=== PATIENT | male | born 1945 | race Caucasian/White ===

== ENCOUNTER 2019-09-28 08:00 | Outpatient (CLI) | payer MEDICARE, SELFPAY ==
[2019-09-28 08:11] LABS: Basophils Absolute Auto 0.02 K/mm3 (0.00-0.10); Basophils Percent Auto 0.3 % (0.0-1.0); Eosinophils Percent Auto 4.5 % (1.0-6.0); Hemoglobin 13.8 g/dL (12.4-15.3); Immature Granulocyte Absolute 0.02 K/mm3 (0.00-0.00); Immature Granulocyte Percent A 0.3 % (0.0-0.0); Lymphocytes Absolute Auto 2.49 K/mm3 (1.10-4.50); Lymphocytes Percent Auto 37.2 % (18.0-42.0); Mean Corpuscular HGB Conc 33.7 g/dL (32.0-36.0); Mean Corpuscular Hemoglobin 29.4 pg (27.0-31.0); Mean Corpuscular Volume 87.2 fL (78.0-102.0); Mean Platelet Volume 10.5 fl (8.7-11.0); Monocytes Absolute Auto 0.64 K/mm3 (0.10-0.90); Monocytes Percent Auto 9.6 % (2.0-11.0); Neutrophils Absolute Auto 3.2 K/mm3 (1.7-7.2); Neutrophils Percent Auto 48.1 % (50.0-70.0); Platelet Count Result 206 K/mm3 (150-420); Red Cell Distribution Width 13.1 % (11.6-14.4); White Blood Count 6.7 K/mm3 (4.8-10.8)
[2019-09-28 08:13] LABS: Add Urine Microscopic? NO; Appearance Urine Clear (Clear); Bilirubin Urine Negative (Negative); Blood Urine Negative (Negative); Color Urine Yellow (Yellow); Glucose Urine UA Negative (Negative); Ketones Urine Negative (Negative); Leukocyte Esterase Ur Negative LEU/UL (Negative); Nitrate Urine Negative (Negative); Protein Urine Negative (Negative); Specific Grav Ur 1.015 (1.010-1.020); Urobilinogen Urine 0.2 mg/dL (0.2-1.0); pH Urine 5.5 (5.0-8.0)
[2019-09-28 08:20] LABS: Hemoglobin A1C 5.7 % (<5.7)
[2019-09-28 08:28] LABS: Creatinine Urine 51.04 mg/dL (40-278)
[2019-09-28 08:56] LABS: MALB Creatinine Ratio 27.6 mg/g (0-30); Microalbumin Urine Random 14.1 mg/L
[2019-09-28 09:32] LABS: Alanine Aminotransferase 28 U/L (16-63); Albumin Level 4.2 g/dL (3.4-5.0); Alkaline Phosphatase 55 U/L (46-116); Anion Gap 11.2 mmol/L (7-16); Aspartate Amino Transferase 19 U/L (15-37); Bilirubin,Total 0.3 mg/dL (0.00-1.00); Blood Urea Nitrogen 29 mg/dL (7-18); Calcium 9.2 mg/dL (8.5-10.1); Carbon Dioxide 31 mmol/L (21-32); Chloride 106 mmol/L (98-108); Cholesterol 131 mg/dL (0-200); Creatine Kinase 101 U/L (39-308); Estimated Glomerular Filt Rate > 60; Glucose 108 mg/dL (70-99); HDL Direct 34 mg/dL (40-60); LDL Cholesterol Calculated 77 mg/dL (<130); Osmolality Calculated 304 mOsm/kg (285-295); Potassium 4.2 mmol/L (3.5-5.1); Sodium 144 mmol/L (136-145); Total Protein 7.1 g/dL (6.4-8.2); Triglycerides 99 mg/dL (0-150)
== END 2019-09-28 08:01 | disposition home or self-care (01) ==
PROVIDERS: PCP Internal Medicine; Visit Provider Internal Medicine
DX: E78.5 Hyperlipidemia, unspecified (principal); I10 Essential (primary) hypertension; R73.01 Impaired fasting glucose
CPT/HCPCS: 36415; 80053; 80061; 81003; 82043; 82550; 83036; 85025

== ENCOUNTER 2020-04-08 08:13 | Outpatient (CLI) | payer MEDICARE, SELFPAY ==
[2020-04-08 08:34] LABS: Appearance Urine Clear (Clear); Bilirubin Urine Negative (Negative); Color Urine Yellow (Yellow); Glucose Urine UA Negative (Negative); Ketones Urine Negative (Negative); Leukocyte Esterase Ur 2+ (Negative); Nitrate Urine Negative (Negative); Protein Urine Negative (Negative); Urobilinogen Urine 0.2 mg/dL (0.2-1.0); pH Urine 5.5 (5.0-8.0)
[2020-04-08 08:40] LABS: Add Urine Microscopic? YES; Blood Urine Trace (Negative); RBC Urine 0-2 /hpf (0-2); WBC Urine 51-75 /hpf (0-3)
[2020-04-08 08:53] LABS: Creatinine Urine 72.68 mg/dL (40-278); MALB Creatinine Ratio 56.6 mg/g (0-30); Microalbumin Urine Random 41.2 mg/L
[2020-04-08 08:55] LABS: Hemoglobin A1C 5.7 % (<5.7)
[2020-04-08 09:44] LABS: Alanine Aminotransferase 25 U/L (16-63); Albumin Level 3.8 g/dL (3.4-5.0); Alkaline Phosphatase 57 U/L (46-116); Anion Gap 9 mmol/L (8-16); Aspartate Amino Transferase 14 U/L (15-37); Bilirubin,Total 0.3 mg/dL (0.00-1.00); Blood Urea Nitrogen 24 mg/dL (7-18); Calcium 8.9 mg/dL (8.5-10.1); Carbon Dioxide 29 mmol/L (21-32); Chloride 105 mmol/L (98-108); Cholesterol 120 mg/dL (0-200); Creatine Kinase 94 U/L (39-308); Estimated Glomerular Filt Rate 53; Glucose 99 mg/dL (70-99); HDL Direct 32 mg/dL (40-60); LDL Cholesterol Calculated 65 mg/dL (<130); Osmolality Calculated 300 mOsm/kg (285-295); Potassium 4.1 mmol/L (3.5-5.1); Prostate Specific Antigen 3.3 ng/mL (< OR = 4.0); Sodium 143 mmol/L (136-145); Total Protein 7.1 g/dL (6.4-8.2); Triglycerides 113 mg/dL (0-150)
== END 2020-04-08 08:14 | disposition home or self-care (01) ==
PROVIDERS: PCP Internal Medicine; Visit Provider Internal Medicine
DX: E78.2 Mixed hyperlipidemia (principal); I10 Essential (primary) hypertension; R73.01 Impaired fasting glucose; Z12.5 Encounter for screening for malignant neoplasm of prostate
CPT/HCPCS: 36415; 80053; 80061; 81001; 82043; 82550; 83036; 84153; G0103

== ENCOUNTER 2020-04-11 10:44 | Outpatient (CLI) | payer MEDICARE, SELFPAY ==
[2020-04-11 10:58] LABS: Basophils Absolute Auto 0.03 K/mm3 (0.00-0.10); Basophils Percent Auto 0.3 % (0.0-1.0); Eosinophils Absolute Auto 0.13 K/mm3 (0.02-0.50); Eosinophils Percent Auto 1.3 % (1.0-6.0); Hematocrit 41.5 % (37.0-46.0); Hemoglobin 13.8 g/dL (12.4-15.3); Immature Granulocyte Absolute 0.02 K/mm3 (0.00-0.00); Immature Granulocyte Percent A 0.2 % (0.0-0.0); Lymphocytes Absolute Auto 2.48 K/mm3 (1.10-4.50); Lymphocytes Percent Auto 25.8 % (18.0-42.0); Mean Corpuscular HGB Conc 33.3 g/dL (32.0-36.0); Mean Corpuscular Hemoglobin 28.6 pg (27.0-31.0); Mean Corpuscular Volume 85.9 fL (78.0-102.0); Mean Platelet Volume 10.5 fl (8.7-11.0); Monocytes Absolute Auto 0.66 K/mm3 (0.10-0.90); Monocytes Percent Auto 6.9 % (2.0-11.0); Neutrophils Absolute Auto 6.3 K/mm3 (1.7-7.2); Neutrophils Percent Auto 65.5 % (50.0-70.0); Platelet Count Result 259 K/mm3 (150-420); Red Blood Count 4.83 M/mm3 (4.70-6.10); Red Cell Distribution Width 12.5 % (11.6-14.4); White Blood Count 9.6 K/mm3 (4.8-10.8)
[2020-04-11 11:00] LABS: Add Urine Microscopic? NO; Appearance Urine Clear (Clear); Bilirubin Urine Negative (Negative); Blood Urine Negative (Negative); Color Urine Yellow (Yellow); Glucose Urine UA Negative (Negative); Ketones Urine Negative (Negative); Leukocyte Esterase Ur Negative (Negative); Nitrate Urine Negative (Negative); Protein Urine Negative (Negative); Urobilinogen Urine 0.2 mg/dL (0.2-1.0); pH Urine 5.5 (5.0-8.0)
[2020-04-11 11:16] LABS: Alanine Aminotransferase 30 U/L (16-63); Albumin Level 4.3 g/dL (3.4-5.0); Alkaline Phosphatase 57 U/L (46-116); Amylase 80 U/L (25-115); Anion Gap 10 mmol/L (8-16); Aspartate Amino Transferase 20 U/L (15-37); Bilirubin,Total 0.6 mg/dL (0.00-1.00); Blood Urea Nitrogen 26 mg/dL (7-18); Calcium 9.7 mg/dL (8.5-10.1); Carbon Dioxide 27 mmol/L (21-32); Chloride 96 mmol/L (98-108); Estimated Glomerular Filt Rate 53; Glucose 125 mg/dL (70-99); Lipase 164 U/L (73-393); Osmolality Calculated 281 mOsm/kg (285-295); Potassium 3.8 mmol/L (3.5-5.1); Sodium 133 mmol/L (136-145); Total Protein 8.4 g/dL (6.4-8.2)
== END 2020-04-11 10:45 | disposition home or self-care (01) ==
LOC: CHSLAB 10:46
PROVIDERS: PCP Internal Medicine; Visit Provider Internal Medicine
DX: R10.9 Unspecified abdominal pain (principal); N39.0 Urinary tract infection, site not specified
CPT/HCPCS: 36415; 80053; 81003; 82150; 83690; 85025; 87086

== ENCOUNTER 2020-04-12 19:40 | Emergency (ER) | payer MEDICARE, OTHER, SELFPAY ==
--- NOTE | ~2020-04-12 | CT_ITS ---
EXAMINATION: CT abdomen pelvis w con DATE: 04/12/2020 21:02 INDICATION: Abdominal pain. Constipation. Urinary tract infection. TECHNIQUE: Computed tomography (CT) of the abdomen and pelvis was performed with 100 mL Omnipaque-350 intravenous contrast. Automated exposure control and iterative reconstruction technique were employe d. The dose-length product was 948.45 mGy-cm. COMPARISON: 11/23/2018 FINDINGS: Left lower lobe pneumatocele. No pleural effusion. Heart size is normal. Atherosclerotic coronary art ambar calcific calcification. Unchanged small pericardial effusion. Multiple scattered hepatic cysts me asuring up to 1.6 cm. Gallbladder, spleen, pancreas and bilateral adrenal glands are normal. Bilatera l renal cysts, the largest on the right and unchanged 2.8 cm proteinaceous/hemorrhagic right renal cy st in the next largest a lower density 8 mm cyst in the left kidney. Bladder is distended but otherwi se unremarkable. Mild prostatomegaly. Short segment of nonobstructed sigmoid colon extends into a mod erate-sized right inguinal hernia. There is mild scattered colonic diverticulosis without adjacent in flammatory change to suggest diverticulitis. Small bowel and appendix are normal. No free intraperito jim gas or fluid. No pathologically enlarged abdominal or pelvic lymphadenopathy. Mild lumbar levocu rvature with mild spondylosis. IMPRESSION: 1. Segment of nonobstructed sigmoid colon extends into a moderate-sized right inguinal hernia. 2. Unchanged small pericardial effusion. Reviewed, dictated and finalized at location A. GENCY MEDCL EMT IMPRESSION: 1. Segment of nonobstructed sigmoid colon extends into a moderate-sized right i nguinal hernia. 2. Unchanged small pericardial effusion.
[2020-04-12 19:41] VITALS: BP 142/92; PULSE 78; RESP 18; TEMP 36.3; O2SAT 99
--- NOTE | 2020-04-12 20:05 | ED.ABDPAIN ---
HPI - Abdominal Pain General Chief Complaint: Abdominal Pain Stated Complaint: abd pain Time Seen by Provider: 04/12/20 20:04 Source: patient Mode of arrival: ambulatory Limitations: no limitations History of Present Illness HPI narrative: Patient 74-year-old male complaining of upper abdominal pain that has been going on for a while , years , worse this past week and was seen at another ER for the same complaints. Patient states his pain is a 4 out of 10, dull, nonradiating accompanied by constipation. Patient denies any nausea vomiting diarrhea or fever. Patient denies any urinary symptoms. Patient denies any chest pain or shortness of breath. Related Data Allergies Allergy/AdvReac Type Severity Reaction Status Date / Time No Known Allergies Allergy Unverified 11/23/18 05:23 Review of Systems Review of Systems: All systems reviewed & are unremarkable except as noted in HPI and below Constitutional: Constitutional: Denies body ache(s), Denies chills, Denies excessive sweating, Denies fatigue, Denies fever(s), Denies headache(s), Denies lethargy, Denies malaise, Denies weakness and Denies weight loss Eyes: Eyes: Denies blurry vision, Denies change in vision and Denies loss of vision ENT: Denies dizziness, Denies ear discharge, Denies headache(s), Denies lip swelling, Denies epistaxis, Denies nasal congestion, Denies neck pain, Denies throat swelling and Denies tongue swelling Cardiovascular: Cardiovascular: Denies chest pain, Denies chest pain at rest, Denies chest pain with activity, Denies diaphoresis, Denies rapid heart rate, Denies edema, Denies irregular heart rhythm, Denies lightheadedness, Denies palpitations, Denies dyspnea and Denies dyspnea on exertion Respiratory: Respiratory: Denies chest congestion, Denies cough, Denies hemoptysis, Denies dyspnea and Denies dyspnea on exertion Gastrointestinal: Gastrointestinal: Denies melena, Denies hematochezia, Denies diarrhea, Denies nausea, Denies vomiting and Denies hematemesis Musculoskeletal: Musculoskeletal: Denies abnormal gait, Denies deformity, Denies joint swelling, Denies limited range of motion, Denies neck pain and Denies numbness Neurologic: Denies Abnormal speech present, Denies abnormal gait, Denies confusion, Denies dizziness, Denies headache(s), Denies focal weakness, Denies loss of vision, Denies numbness, Denies Other visual disturbances, Denies Sensory deficit (Neuro) and Denies weakness Psychiatric: Psychiatric: Denies confusion, Denies depression, Denies auditory hallucinations, Denies homicidal ideation and Denies suicidal ideation Endocrine: Endocrine: Denies cold intolerance, Denies excessive sweating, Denies fatigue, Denies heat intolerance and Denies palpitations Hematologic/Lymphatic: Hematologic/Lymphatic: Denies easy bleeding and Denies easy bruising Allergic/Immunologic: Allergic/Immunologic: Denies lip swelling, Denies throat swelling and Denies tongue swelling Exam Const: General: cooperative, healthy appearing, comfortable, no acute distress, well developed, alert and awake; No confusion Orientation/consciousness: oriented to person, oriented to place, oriented to time, patient oriented x3 and No confusion Limitations: no limitations HENMT: Head: normal to inspection, normocephalic and atraumatic Ears: hearing grossly normal bilaterally, TM normal on the right and TM normal on the left General nose exam: Normal external nose present, Normal nares present and No nasal discharge present Face and sinus: normal facial exam Mouth: Yes Normal oral and palatal mucosa present, Yes lip normal, Yes tongue normal and Yes oropharynx normal Throat: posterior oropharynx normal, tonsils normal and uvula midline Eyes: General: appearance normal, both eyes and all related structures Pupils: Equal, round and reactive pupils present EOM: EOMs intact bilaterally Neck: Neck: normal visual inspection, full ROM, no lymphadenopathy and no meningeal signs Chest:
[2020-04-12 20:25] LABS: Add Urine Microscopic? NO; Appearance Urine Clear (Clear); Bacteria Urine Trace /hpf; Bilirubin Urine Negative (Negative); Blood Urine Negative (Negative); Color Urine Colorless (Yellow); Glucose Urine UA Negative (Negative); Ketones Urine Negative (Negative); Leukocyte Esterase Ur Negative LEU/UL (Negative); Mucus Urine Rare /lpf; Nitrate Urine Negative (Negative); Protein Urine Negative (Negative); RBC Urine 0-2 /hpf (0-2); Specific Grav Ur 1.008 (1.001-1.035); Squamous Epithelial Cell Urine Rare /hpf (Few); Urobilinogen Urine Negative mg/dL (<2.0); WBC Urine 0-3 /hpf
[2020-04-12 20:37] LABS: Basophils Percent Auto 0.2 % (0.2-1.2); Eosinophils Absolute Auto 0.1 K/mm3 (0-0.3); Eosinophils Percent Auto 1.7 % (0-4.4); Hematocrit 39.5 % (42.0-52.0); Hemoglobin 13.4 g/dL (14.0-18.0); Immature Granulocyte Absolute 0.03 K/mm3 (0.00-0.031); Immature Granulocyte Percent A 0.4 % (0-0.5); Lymphocytes Absolute Auto 1.93 K/mm3 (0.9-3.2); Lymphocytes Percent Auto 23.5 % (18.3-44.2); Mean Corpuscular HGB Conc 33.9 g/dl (32-36); Mean Corpuscular Hemoglobin 28.5 pg (26-34); Mean Platelet Volume 10.4 fl (7.4-10.4); Monocytes Absolute Auto 0.8 K/mm3 (0.1-0.6); Monocytes Percent Auto 9.3 % (2.6-8.5); Neutrophils Absolute Auto 5.3 K/mm3 (1.3-6.7); Neutrophils Percent Auto 64.9 % (45.5-73.1); Platelet Count Result 229 k/mm3 (150-375); Red Cell Distribution Width 12.3 % (11.5-14.5); White Blood Count 8.2 K/mm3 (4.5-10.0)
[2020-04-12 20:48] LABS: Alanine Aminotransferase 24 U/L (4-50); Albumin Level 4.1 g/dL (3.5-5.1); Alkaline Phosphatase 56 U/L (38-126); Anion Gap 7 mmol/L (8-16); Aspartate Amino Transferase 32 U/L (17-59); Bilirubin,Total 0.5 mg/dL (0.2-1.3); Blood Urea Nitrogen 27 mg/dL (9-20); Carbon Dioxide 29 mmol/L (22-30); Chloride 95 mmol/L (98-107); Estimated Glomerular Filt Rate > 60; Glucose 98 mg/dL (75-110); Lipase 186 U/L (23-300); Potassium 3.5 mmol/L (3.4-5.0); Sodium 131 mmol/L (137-145)
[2020-04-12] MEDS: LACTATED RINGERS 1,000 ML 999 ML IV CONT (22:54)
[2020-04-13 00:08] VITALS: BP 139/87; PULSE 72; RESP 20; O2SAT 97
== END 2020-04-13 00:11 | disposition home or self-care (01) ==
PROVIDERS: Emergency Medicine; Emergency Provider Emergency Medicine; PCP Internal Medicine
DX: R10.10 Upper abdominal pain, unspecified (principal); K40.90 Unilateral inguinal hernia, without obstruction or gangrene, not specified as recurrent; I31.3 Pericardial effusion (noninflammatory)
CPT/HCPCS: 36415; 74177; 80053; 81003; 83690; 85025; 96360; 99284; J7120; Q9967

== ENCOUNTER 2020-04-14 11:20 | Inpatient (IN) | payer MEDICARE, OTHER, SELFPAY ==
[2020-04-14] VITALS (14 sets, daily range): BP systolic 142–168; BP diastolic 67–91; PULSE 63–92; RESP 16–20; TEMP 36.4–37.8; O2SAT 95–99; BMI 27.8
--- NOTE | ~2020-04-14 | XR_ITS ---
XR chest 1V portable DATE: 04/14/2020 12:48 INDICATION: Syncope TECHNIQUE: Portable AP chest on 04/14/2020 1230 hours COMPARISON: 08/26/2014 2 view chest FINDINGS: Heart size is within normal range. There is aortic calcification. No hilar or mediastinal e nlargement. No pulmonary infiltrate or consolidation, pleural effusion or pulmonary vascular congestion or pneumo thorax. IMPRESSION: No active cardiopulmonary disease Aortic atherosclerosis Reviewed, dictated and finalized at location A. IO HAND
--- NOTE | ~2020-04-14 | XR_ITS ---
EXAMINATION: XR abdomen obstructive series DATE: 04/14/2020 12:49 INDICATION: Constipation TECHNIQUE: Frontal supine and upright views of the abdomen were obtained. COMPARISON: None. FINDINGS: Small amount of stool and fluid scattered throughout the colon. There is gas within a small diverticu lum is seen along the descending colon. No dilated gas-filled bowel to suggest obstruction. No free i ntraperineal gas. Bilateral lower lung zones are clear. Heart size is normal. Mild lumbar levocurvatu re with moderate spondylosis. Transitional right side lumbarized S1 segment. IMPRESSION: 1. No free intraperitoneal gas or dilated gas-filled loops of bowel to suggest obstruction. Reviewed, dictated and finalized at location A. VERY ASSISTANT
--- NOTE | 2020-04-14 11:52 | ECG_ITS ---
Measurements Intervals [place] Rate: 75 P: 36 IL: 278 QRS: 27 QRSD: 105 T: 12 QT: 383 QTc: 430 Interpretive Statements SINUS RHYTHM WITH FIRST DEGREE AV BLOCK DELAYED PRECORDIAL R/S TRANSITION INFERIOR INFARCT, AGE INDETERMINATE BASELINE ARTIFACT- I, II, III, AVR, AVL, AVF, V1-V3 ABNORMAL ECG Electronically Signed On 04-14-2020 12:06:42 HONING MACHINE OPERATOR by Dereje Miller D.O.
[2020-04-14 12:10] LABS: Hematocrit 38.5 % (37.0-46.0); Hemoglobin 12.7 g/dL (12.4-15.3); Mean Corpuscular Hemoglobin 28.3 pg (27.0-31.0); Mean Corpuscular Volume 85.9 fL (78.0-102.0); Mean Platelet Volume 10.6 fl (8.7-11.0); Platelet Count Result 203 K/mm3 (150-420); Red Blood Count 4.48 M/mm3 (4.70-6.10); Red Cell Distribution Width 12.5 % (11.6-14.4); White Blood Count 5.5 K/mm3 (4.8-10.8)
[2020-04-14 12:13] LABS: Add Urine Microscopic? NO; Appearance Urine Clear (Clear); Bilirubin Urine Negative (Negative); Blood Urine Negative (Negative); Color Urine Yellow (Yellow); Glucose Urine UA Negative (Negative); Ketones Urine Negative (Negative); Leukocyte Esterase Ur Negative LEU/UL (Negative); Nitrate Urine Negative (Negative); Protein Urine Negative (Negative); Specific Grav Ur 1.015 (1.010-1.020); Urobilinogen Urine 0.2 mg/dL (0.2-1.0); pH Urine 7.5 (5.0-8.0)
[2020-04-14 12:30] LABS: Alanine Aminotransferase 28 U/L (16-63); Alkaline Phosphatase 47 U/L (46-116); Anion Gap 6 mmol/L (8-16); Aspartate Amino Transferase 20 U/L (15-37); Bilirubin,Total 0.4 mg/dL (0.00-1.00); Blood Urea Nitrogen 17 mg/dL (7-18); Calcium 9.1 mg/dL (8.5-10.1); Carbon Dioxide 30 mmol/L (21-32); Chloride 93 mmol/L (98-108); Estimated Glomerular Filt Rate 54; Glucose 110 mg/dL (70-99); Osmolality Calculated 270 mOsm/kg (285-295); Potassium 3.4 mmol/L (3.5-5.1); Sodium 129 mmol/L (136-145); Total Protein 7.8 g/dL (6.4-8.2)
[2020-04-14 12:32] LABS: Band Neutrophils Percent 0 % (0-6); Basophils Percent Manual 0 % (0-1); Eosinophils Percent Manual 0 % (1-6); Lymphocytes Absolute Manual 1.32 K/mm3 (1.1-4.5); Lymphocytes Percent Manual 24 % (18-44); Monocytes Absolute Manual 0.82 K/mm3 (0.1-0.90); Monocytes Percent Manual 15 % (3-9); Neutrophils Absolute Manual 3.35 K/mm3 (1.3-6.7); Neutrophils Percent Manual 61 % (46-73); Platelet Estimate Adequate (Adequate); Total Cells Counted 100
[2020-04-14 12:37] LABS: D Dimer 0.19 mg/L (0.19-0.50)
[2020-04-14 12:38] LABS: Troponin I 10.3 ng/L (0.00-60.4)
[2020-04-14 12:48] LABS: BNP 76 pg/mL (0-100)
[2020-04-14 14:07] LABS: Magnesium 2.2 mg/dL (1.8-2.4)
[2020-04-14] MEDS: POTASSIUM CHLORIDE 20 MEQ TABLET 40 MEQ PO (14:07)
[2020-04-14 14:40] LABS: SARS-CoV-2 Ag Positive (Negative)
--- NOTE | 2020-04-14 14:50 | PC.NURSE ---
NO COVID BEDS AVAILABLE TO [facility] - CALL PLACED TO [facility]
--- NOTE | 2020-04-14 15:16 | PC.NURSE ---
NO COVID BEDS AVAILABLE TO [facility] CALLED REQUESTED BY FAMILY, ALSO NO BEDS AVAILABLE
[2020-04-14] MEDS: ACETAMINOPHEN 325 MG TABLET 650 MG PO ×2 (19:33→23:54)
[2020-04-14] MEDS: ZOLPIDEM TARTRATE (*CRX) 5 MG TABLET 10 MG PO (21:11)
--- NOTE | 2020-04-14 23:03 | ED.SYNCOPE ---
HPI - Syncope General Source: patient and family Mode of arrival: ambulatory History of Present Illness HPI narrative: According to the the patient had a syncopal episode in Dr Luna's office, and was out for about 10 minutes. He was brought over here afterward. There was no evidence this was a seizure. This happened about 30 minutes ago, and he was out for about 10 minutes the thinks. MD complaint: loss of consciousness and felt faint Prodromal symptoms: none and other (history of constipation) Witnessed: Yes - by Bystander Context: at rest Injuries sustained associated with event: none Current symptoms: none Related Data Home Medications Medication Instructions Recorded Confirmed aspirin 81 mg PO DAILY 04/14/20 04/14/20 atorvastatin 40 mg PO DAILY 04/14/20 04/14/20 levofloxacin 250 mg PO DAILY 04/14/20 04/14/20 lisinopril 40 mg PO DAILY 04/14/20 04/14/20 metoprolol succinate 100 mg PO DAILY 04/14/20 04/14/20 nifedipine 60 mg PO DAILY 04/14/20 04/14/20 omeprazole 40 mg PO DAILY 04/14/20 04/14/20 potassium chloride 10 meq PO DAILY 04/14/20 04/14/20 triamterene-hydrochlorothiazid 1 cap PO DAILY 04/14/20 04/14/20 zolpidem 10 mg PO HS PRN 04/14/20 04/14/20 Allergies Allergy/AdvReac Type Severity Reaction Status Date / Time No Known Allergies Allergy Unverified 11/23/18 05:23 Review of Systems Constitutional: Constitutional: Reports no additional constitutional complaints Eyes: Eyes: Reports no additional eye complaints ENT: Reports system reviewed and no additional complaints, except as documented Cardiovascular: Cardiovascular: Reports no additional cardiovascular complaints Respiratory: Respiratory: Reports no additional respiratory complaints Gastrointestinal: Gastrointestinal: Reports no additional gastrointestinal complaints Genitourinary: Genitourinary: Reports no additional male genitourinary complaints Musculoskeletal: Musculoskeletal: Reports no additional musculoskeletal complaints Integumentary/Breasts: Skin/Breast: Reports system reviewed and no additional complaints, except as docu Neurologic: Reports system reviewed and no additional complaints, except as documented Psychiatric: Psychiatric: Reports no additional psychiatric complaints Endocrine: Endocrine: Reports no additional endocrine complaints Hematologic/Lymphatic: Hematologic/Lymphatic: Reports no additional hematologic/lymphatic complaints Allergic/Immunologic: Allergic/Immunologic: Reports no additional allergic/immunologic complaints PMFSH Surgical History Surgical History (Updated 04/14/20 @ 23:12 by Luis Patterson MD) No significant past surgical history Family History Family History (Updated 04/14/20 @ 23:13 by Luis Patterson MD) Father Heart murmur Social History Social History Smoking status: Never smoker Second hand tobacco smoke exposure: No Alcohol intake: current Alcohol use details: rare now, in past somewhat common Substance use: never Spiritual care concerns: No Exam Const: General: no acute distress Nutritional Appearance: well nourished HENMT: Head: normal to inspection General nose exam: Normal external nose present and Normal nares present Face and sinus: normal facial exam Mouth: Yes Normal oral and palatal mucosa present and Yes moist mucous membranes Eyes: Conjunctivae: conjunctivae normal Neck: Neck: normal visual inspection Chest: Chest palpation & inspection: normal inspection of the chest Resp: Effort & Inspection: normal respiratory effort Auscultation: clear to auscultation bilaterally Cardio: Rate: regular rate Rhythm: regular rhythm : Male General Exam: Yes normal external exam Skin: General skin exam: normal color Neuro: General: patient oriented x3 and moves all extremities Extrem: General: normal to inspection Psych: Appearance: grossly normal Mental Status: mental status grossly norm
[2020-04-15] VITALS (11 sets, daily range): BP systolic 134–162; BP diastolic 87–90; PULSE 68–105; RESP 18–20; TEMP 37.4–38; O2SAT 93–95
[2020-04-15] MEDS: ACETAMINOPHEN 325 MG TABLET 650 MG PO ×3 (05:41→20:40)
--- NOTE | 2020-04-15 05:46 | PC.NURSE ---
Patient requested PRN tylenol for headach.
[2020-04-15 07:33] LABS: Anion Gap 8 mmol/L (8-16); Blood Urea Nitrogen 19 mg/dL (7-18); Calcium 8.6 mg/dL (8.5-10.1); Carbon Dioxide 28 mmol/L (21-32); Chloride 91 mmol/L (98-108); Estimated CRCL calculation 50 ml/min; Estimated Glomerular Filt Rate 51; Glucose 93 mg/dL (70-99); Osmolality Calculated 266 mOsm/kg (285-295); Potassium 3.3 mmol/L (3.5-5.1); Sodium 127 mmol/L (136-145)
[2020-04-15] MEDS: TRIAMTERENE 37.5 MG/HCTZ 25 MG (MAXZIDE) TABLET 1 TAB PO (08:32)
[2020-04-15] MEDS: ATORVASTATIN 40 MG TABLET PO (08:33)
[2020-04-15] MEDS: POTASSIUM CHLORIDE 10 MEQ TABLET PO (08:33)
[2020-04-15] MEDS: PANTOPRAZOLE 40 MG TABLET PO (08:33)
[2020-04-15] MEDS: lisinopriL 20 MG TABLET 40 MG PO (08:34)
[2020-04-15] MEDS: DEXAMETHASONE SOD PHOS INJ 4 MG/ML VIAL 6 MG IV PUSH (08:34)
[2020-04-15] MEDS: ENOXAPARIN 40 MG/0.4 ML SYRINGE SUB-Q (08:34)
[2020-04-15] MEDS: ASPIRIN 81 MG ENTERIC TABLET PO (08:34)
--- NOTE | 2020-04-15 08:55 | PM.IMHP ---
H&P: HPI History of Present Illness Date/Time: 04/15/20 08:55 <JIHAN Grimes - Last Filed: 04/15/20 14:33> Chief complaint: syncope <JIHAN Grimes - Last Filed: 04/15/20 14:33> Narrative: Reji Ayala Jr. is a 74 year old male who comes to the hospital after having a syncopal episode at Dr. Luna's office when his was there for her appointment. Patient states that having to wear a mask is what he believes caused him to have the syncopal episode. Patient does admit that he was going to be having a cardiac catheterization done next Tuesday. According to ER documentation patient was out for 10 minutes when he had his syncopal episode. Patient did test positive for COVID on 04/14/2020. At this time his beta dary and calcium channel dary have been held. EKG report indicates sinus rhythm with 1st degree AV block. <JIHAN Grimes - Last Filed: 04/15/20 14:33> Review of Systems Constitutional: Constitutional: Reports no additional constitutional complaints, Denies fever(s), Denies headache(s), Denies malaise and Denies weakness <JIHAN Grimes - Last Filed: 04/15/20 14:33> Cardiovascular: Cardiovascular: Reports no additional cardiovascular complaints, Denies chest pain, Denies chest pain at rest, Denies chest pain with activity and Reports syncope (As noted in the HPI) <JIHAN Grimes - Last Filed: 04/15/20 14:33> Respiratory: Respiratory: Reports no additional respiratory complaints <JIHAN Grimes - Last Filed: 04/15/20 14:33> Gastrointestinal: Gastrointestinal: Reports other (says he was constipated but now having diarrhea) <JIHAN Grimes - Last Filed: 04/15/20 14:33> Comments: nurse reports patient having soft stools <JIHAN Grimes - Last Filed: 04/15/20 14:33> Musculoskeletal: Musculoskeletal: Reports no additional musculoskeletal complaints <JIHAN Grimes - Last Filed: 04/15/20 14:33> Neurologic: Reports system reviewed and no additional complaints, except as documented <JIHAN Grimes - Last Filed: 04/15/20 14:33> [facility] Surgical History Surgical History: Surgical History No significant past surgical history <JIHAN Grimes - Last Filed: 04/15/20 14:33> Family History Family History: Family History Father Heart murmur <JIHAN Grimes - Last Filed: 04/15/20 14:33> Social History Social History: Social History Smoking status: Never smoker Second hand tobacco smoke exposure: No Alcohol intake: current Alcohol use details: rare now, in past somewhat common Substance use: never Spiritual care concerns: No <JIHAN Grimes - Last Filed: 04/15/20 14:33> Meds Home Medications and Allergies Home medications: Home Medications Medication Instructions Recorded Confirmed Type aspirin 81 mg PO DAILY 04/14/20 04/14/20 History atorvastatin 40 mg PO DAILY 04/14/20 04/14/20 History levofloxacin 250 mg PO DAILY 04/14/20 04/14/20 History lisinopril 40 mg PO DAILY 04/14/20 04/14/20 History metoprolol succinate 100 mg PO DAILY 04/14/20 04/14/20 History nifedipine 60 mg PO DAILY 04/14/20 04/14/20 History omeprazole 40 mg PO DAILY 04/14/20 04/14/20 History potassium chloride 10 meq PO DAILY 04/14/20 04/14/20 History triamterene-hydrochlorothiazid 1 cap PO DAILY 04/14/20 04/14/20 History zolpidem 10 mg PO HS PRN 04/14/20 04/14/20 History <JIHAN Grimes - Last Filed: 04/15/20 14:33> Allergies/Adverse reactions: Allergies Allergy/AdvReac Type Severity Reaction Status Date / Time No Known Allergies Allergy Unverified 11/23/18 05:23 <Walker Cronin APN-Eduardo - Last Filed: 04/15/20 14:33> Vital Signs Vital Signs - 24 hr 04/14/20 11:20 04/14/20 13:40 12/0
[2020-04-15] MEDS: POTASSIUM CHLORIDE 20 MEQ TABLET 40 MEQ PO (10:08)
[2020-04-15] MEDS: SODIUM CHLORIDE 0.9% IV 1,000 ML 100 ML IV CONT ×2 (10:09→20:05)
--- NOTE | 2020-04-15 10:43 | PC.NURSE ---
claims he felt constipated and requesting relief. refuses now, claims lg loose stool and stomach feeling better.
--- NOTE | 2020-04-15 19:43 | PC.NURSE ---
1545 pt claims he is having a loose stool and wants nurses to to see prior to flush. mod amt of soft mushy stool in toilet. claims he has a headache and temp is now 100.3. prn tyl given at this time. mindy gunter
--- NOTE | 2020-04-15 19:47 | PC.NURSE ---
pt is on phone with , put on speaker phone and states dr chowdhury office wants you to transfer him to [facility] the first chance you get , charge nurse is unaware of any plans/need to transfer pt at this time, will continue to monitor
[2020-04-15] MEDS: ZOLPIDEM TARTRATE (*CRX) 5 MG TABLET 10 MG PO (20:40)
--- NOTE | 2020-04-15 22:36 | PC.NURSE ---
pt has been in contact with er nurses concerning getting transferred to [facility], reports er has told them dr will not speak with them and to call the floor charge nurse, jinny has been in to speak with pt and and let them know that there are no beds available at [facility]
[2020-04-16] VITALS: BP 140/84; PULSE 68; RESP 20; TEMP 36.9; O2SAT 96
--- NOTE | 2020-04-16 02:12 | PC.NURSE ---
Pt. sleeping, no c/o, no distress noted.
[2020-04-16 02:55] VITALS: PULSE 70
[2020-04-16 03:44] VITALS: BP 160/78; PULSE 68; RESP 20; TEMP 37.2; O2SAT 96
[2020-04-16] MEDS: SODIUM CHLORIDE 0.9% IV 1,000 ML 100 ML IV CONT (04:43)
[2020-04-16 05:57] LABS: Hematocrit 36.8 % (37.0-46.0); Hemoglobin 12.3 g/dL (12.4-15.3); Mean Corpuscular HGB Conc 33.4 g/dL (32.0-36.0); Mean Corpuscular Hemoglobin 28.6 pg (27.0-31.0); Mean Corpuscular Volume 85.6 fL (78.0-102.0); Mean Platelet Volume 10.4 fl (8.7-11.0); Platelet Count Result 200 K/mm3 (150-420); Red Cell Distribution Width 12.5 % (11.6-14.4); White Blood Count 3.6 K/mm3 (4.8-10.8)
[2020-04-16 06:17] LABS: Anion Gap 9 mmol/L (8-16); Blood Urea Nitrogen 21 mg/dL (7-18); Calcium 8.8 mg/dL (8.5-10.1); Carbon Dioxide 27 mmol/L (21-32); Chloride 96 mmol/L (98-108); Estimated CRCL calculation 53 ml/min; Estimated Glomerular Filt Rate 56; Glucose 90 mg/dL (70-99); Osmolality Calculated 277 mOsm/kg (285-295); Potassium 3.7 mmol/L (3.5-5.1); Sodium 132 mmol/L (136-145)
[2020-04-16 08:00] VITALS: BP 160/94; PULSE 78; RESP 20; TEMP 37.4; O2SAT 95
[2020-04-16] MEDS: ENOXAPARIN 40 MG/0.4 ML SYRINGE SUB-Q (08:13)
[2020-04-16] MEDS: ASPIRIN 81 MG ENTERIC TABLET PO (08:14)
[2020-04-16] MEDS: TRIAMTERENE 37.5 MG/HCTZ 25 MG (MAXZIDE) TABLET 1 TAB PO (08:14)
[2020-04-16] MEDS: ATORVASTATIN 40 MG TABLET PO (08:14)
[2020-04-16] MEDS: POTASSIUM CHLORIDE 10 MEQ TABLET PO (08:14)
[2020-04-16] MEDS: lisinopriL 20 MG TABLET 40 MG PO (08:15)
[2020-04-16] MEDS: PANTOPRAZOLE 40 MG TABLET PO (08:16)
[2020-04-16] MEDS: DEXAMETHASONE SOD PHOS INJ 4 MG/ML VIAL 6 MG IV PUSH (08:16)
--- NOTE | 2020-04-16 11:17 | PM.DS ---
DS: Admitting Diagnosis Admitting Diagnosis Admitting Diagnosis: syncope <Walker CroninJIHAN - Last Filed: 04/16/20 12:02> DS: Discharge Diagnosis Discharge Diagnosis (1) Syncope: Qualifiers: Syncope type: unspecified Qualified Code(s): R55 - Syncope and collapse <Walker CroninJIHAN - Last Filed: 04/16/20 12:02> Code(s): R55 - Syncope and collapse <Walker CroninJIHAN - Last Filed: 04/16/20 12:02> Status: Acute <Walker CroninLAXMIAgathaEduardo - Last Filed: 04/16/20 12:02> Assessment and Plan: 04/15/2020 patient's blood pressure medications have been held at this time, EKG reading reports sinus rhythm first-degree heart block, monitor shows occasional PACs, patient was scheduled for cardiac catheterization Tuesday04/21/2020 04/16/2020 discussed patient with nurse Major for Dr. Vargas whom informed me that patient's previous echo and stress test did not indicate any urgency for catheterization, catheterization originally scheduled for Tuesday04/21/2020 and patient has informed us this has been changed to 05/04/2020, will send patient home on a Holter monitor for primary care provider and diesel tractor engine mechanic to evaluate. <Walker CroninJIHAN - Last Filed: 04/16/20 12:02> (2) Hypertension: Code(s): I10 - Essential (primary) hypertension <Walker JimenezJIHAN peres - Last Filed: 04/16/20 12:02> Status: Acute <Walker CroninJIHAN - Last Filed: 04/16/20 12:02> Assessment and Plan: 04/15/2020 continue with lisinopril at this time may restart metoprolol, will continue to hold nifedipine due to syncope 04/16/2020 will continue lisinopril and at this time hold metoprolol and nifedipine, patient will need to follow-up with PCP in a week and as noted above his diesel tractor engine mechanic at the end of this month <Walker SchwartzMarvin TonyJIHAN peres - Last Filed: 04/16/20 12:02> (3) Hyperlipidemia: Code(s): E78.5 - Hyperlipidemia, unspecified <Walker JimenezLAXMI peresAgathaEduardo - Last Filed: 04/16/20 12:02> Status: Acute <Walker CroninLAMXIAgathaEduardo - Last Filed: 04/16/20 12:02> Assessment and Plan: 04/15/2020 continue with atorvastatin <Walker JimenezLAXMI peresFartun - Last Filed: 04/16/20 12:02> (4) Electrolyte imbalance: Code(s): E87.8 - Other disorders of electrolyte and fluid balance, not elsewhere classified <Walker JimenezJIHAN peres - Last Filed: 04/16/20 12:02> Status: Acute <Walker JimenezLAXMI peresAgathaEduardo - Last Filed: 04/16/20 12:02> Assessment and Plan: 04/15/2020 sodium 127 chloride 91 potassium 3.3, normal saline at 100 mL/h, 40 mEq potassium given this morning, monitor electrolytes 04/16/2020 electrolytes improved sodium 132 chloride 96 potassium 3.7 and to note renal function improved as well <Walker JimenezLAXMI peresFartun - Last Filed: 04/16/20 12:02> DS: Summary Time Spent with Patient Time attestation: Total time spent providing and/or coordinating discharge services: < 30 min <Walker Roman LAXMI CroninAgathaEduardo - Last Filed: 04/16/20 12:02> Exam Const: General: cooperative, comfortable, no acute distress, alert, awake and Physically active <Walker Roman LAXMI CroninAgathaEduardo - Last Filed: 04/16/20 12:02> Nutritional Appearance: overweight <Walker SchwartzMarvin Cronin APNAgathaEduardo - Last Filed: 04/16/20 12:02> Resp: Effort & Inspection: normal respiratory effort <Walker SchwartzMarvin Cronin APNAgathaEduardo - Last Filed: 04/16/20 12:02> Auscultation: clear to auscultation bilaterally <Walker Roman LAXMI CroninAgathaEduardo - Last Filed: 04/16/20 12:02> Cardio: Rhythm: abnormal rhythm (first-degree AV block with PACs) <Walker SchwartzJIHAN Roland - Last Filed: 04/16/20 12:02> Heart sounds: S1 normal heart sound present and S2 normal heart sound present <JIHAN Grimes - Last Filed: 04/16/20 12:02> GI: GI Palp: Yes Soft to palpation and No Tenderness to palpation present (GI) <JIHAN Grimes - Last Filed: 04/16/20 12:02> Auscultation: normal bowel sounds <JIHAN Grimes - Last
[2020-04-16 12:00] VITALS: BP 154/92; PULSE 70; PULSE 74; RESP 20; TEMP 37.4; O2SAT 94
--- NOTE | 2020-04-16 17:24 | PC.NURSE ---
1640. patient voices no c/o. dc instructions went over and verbalizes an understanding. sent home with [facility] monitor. denies any pain at this time or sob. picked him out in front of building.
--- NOTE | 2020-04-24 09:46 | PC.NURSE ---
Pt states he received his discharge instructions. Also states they were all fine when asked for comments regarding his care.
== END 2020-04-16 16:40 | disposition home or self-care (01) | DRG 179 ==
LOC: CHSED 11:23 → CHS2ND 15:51
PROVIDERS: Nurse Practitioner Family; Admitting Provider Emergency Medicine; Emergency Provider Emergency Medicine; PCP Internal Medicine; Visit Provider Emergency Medicine
DX: U07.1 COVID-19 (principal); R55 Syncope and collapse; I44.0 Atrioventricular block, first degree; I10 Essential (primary) hypertension; E87.8 Other disorders of electrolyte and fluid balance, not elsewhere classified; E78.5 Hyperlipidemia, unspecified
CPT/HCPCS: 36415; 71045; 74019; 80048; 80053; 81003; 83735; 83880; 84484; 85025; 85027; 85380; 87426; 93005; 93225; 93226; 99285; A9270; J1100; J1650; J7030

== ENCOUNTER 2020-06-10 09:56 | Outpatient (CLI) | payer MEDICARE, SELFPAY ==
[2020-06-10 10:08] LABS: Basophils Absolute Auto 0.01 K/mm3 (0.00-0.10); Basophils Percent Auto 0.2 % (0.0-1.0); Eosinophils Absolute Auto 0.07 K/mm3 (0.02-0.50); Eosinophils Percent Auto 1.2 % (1.0-6.0); Hematocrit 37.1 % (37.0-46.0); Hemoglobin 12.1 g/dL (12.4-15.3); Immature Granulocyte Absolute 0.02 K/mm3 (0.00-0.00); Immature Granulocyte Percent A 0.4 % (0.0-0.0); Lymphocytes Absolute Auto 1.49 K/mm3 (1.10-4.50); Lymphocytes Percent Auto 26.5 % (18.0-42.0); Mean Corpuscular HGB Conc 32.6 g/dL (32.0-36.0); Mean Corpuscular Volume 85.9 fL (78.0-102.0); Mean Platelet Volume 10.4 fl (8.7-11.0); Monocytes Percent Auto 10.7 % (2.0-11.0); Neutrophils Absolute Auto 3.4 K/mm3 (1.7-7.2); Platelet Count Result 254 K/mm3 (150-420); Red Blood Count 4.32 M/mm3 (4.70-6.10); Red Cell Distribution Width 13.5 % (11.6-14.4); White Blood Count 5.6 K/mm3 (4.8-10.8)
[2020-06-10 11:02] LABS: Anion Gap 10 mmol/L (8-16); Blood Urea Nitrogen 14 mg/dL (7-18); Calcium 9.7 mg/dL (8.5-10.1); Carbon Dioxide 27 mmol/L (21-32); Chloride 98 mmol/L (98-108); Estimated Glomerular Filt Rate > 60; Glucose 123 mg/dL (70-99); Osmolality Calculated 281 mOsm/kg (285-295); Potassium 4.4 mmol/L (3.5-5.1); Prostate Specific Antigen 3.6 ng/mL (< OR = 4.0); Sodium 135 mmol/L (136-145)
== END 2020-06-10 09:57 | disposition home or self-care (01) ==
PROVIDERS: PCP Internal Medicine; Visit Provider Internal Medicine
DX: N39.0 Urinary tract infection, site not specified (principal); N41.9 Inflammatory disease of prostate, unspecified
CPT/HCPCS: 36415; 80048; 84153; 85025

== ENCOUNTER 2020-06-18 10:09 | Outpatient (CLI) | payer MEDICARE, SELFPAY ==
[2020-06-18 10:17] LABS: Add Urine Microscopic? NO; Appearance Urine Clear (Clear); Bilirubin Urine Negative (Negative); Blood Urine Negative (Negative); Color Urine Yellow (Yellow); Glucose Urine UA Negative (Negative); Ketones Urine Negative (Negative); Leukocyte Esterase Ur Negative (Negative); Nitrate Urine Negative (Negative); Protein Urine Negative (Negative); Specific Grav Ur 1.015 (1.010-1.020); Urobilinogen Urine 0.2 mg/dL (0.2-1.0)
== END 2020-06-18 10:10 | disposition home or self-care (01) ==
LOC: CHSLAB 10:11
PROVIDERS: PCP Internal Medicine; Visit Provider Internal Medicine
DX: N39.0 Urinary tract infection, site not specified (principal)
CPT/HCPCS: 81003; 87086

== ENCOUNTER 2021-11-11 02:17 | Day surgery (SDC) | payer MEDICARE, OTHER, SELFPAY ==
[2021-10-26 13:16] VITALS: BMI 26.4
--- NOTE | 2021-10-26 13:49 | PC.NURSE ---
Report to the Outpatient Waiting Room, entrance under the green pavilion located off [facility], at time _1000_ on date _11/11/21_. OR Time: _1200_. - You and your visitor will be asked a series of questions to screen for COVID 19 for your protection. - Only one visitor is allowed at this time. - The patient visitor is requested to leave or wait in car when not with patient. - A mask is required within the hospital. Patients may have clear liquids (water, carbonated beverages, clear teas, apple juice) until 3 hours prior to surgery (0900 AM) with a maximum of 20 ounces. - No food from midnight until time of surgery Take the following medications with a SIP of water the morning of surgery: _CARVEDILOL, NIFEDIPINE_ Medications to discontinue - _ASPIRIN PER DR. ROJAS'S INSTRUCTIONS_ Medications to discontinue per ANESTHESIA - MULTIVITAMIN 3 DAYS PRIOR TO SURERY, Date to take last dose 11/07/21_ Please no make-up, nail korean, hairspray, perfume, deodorant, or body powder the day of surgery. No jewelry (including any body piercings) or valuables the day of surgery, leave them at home. Please take a shower or bath the night before, or the morning of, surgery with an antibacterial soap. Wear comfortable, loose fitting clothing. Children are encouraged to wear pajamas. - Jewelry must be removed prior to entering the operating room. Rings and piercings that are not removed may be cut off. - The hospital will not accept responsibility for valuables. - Please leave all valuables, including medications, at home the day of surgery. If you are going home after surgery, a licensed jin[place]isha driver must drive you home. - NO public transportation without another adult. - We recommend that an adult stay with you for 24 hours following discharge. - We also recommend that you do not drive, make important decision, drink alcoholic beverages, or take any drugs that were not prescribed by your health care provider for at least 24 hours after your discharge time. Follow any additional instructions given to you from your surgeon. If you or anyone in your household have experienced Covid symptoms in the past week, please notify your surgeon or the nurse liaison at the phone number below for possible testing. Telephone instructions given to ___PT and asked if any additional questions and then verbalized understanding. Patient advised to call surgeon office or pre surgery nurse liaison [phone] if any additional questions.
--- NOTE | 2021-11-10 14:15 | P.PNAN_ITS ---
Anes - Initial Pre Proc Eval Procedure: Operation Date: 11/11/21 12:00 Proposed Procedures p Urolift - Tejinder Cook MD Date/Time: 11/10/21 14:15 Surgeon: Tejinder Cook MD Pre Op Diagnosis: BPH Patient Data Age: 76 Gender: M Height: 1.88 m Weight: 93.18 kg Allergies Allergy/AdvReac Type Severity Reaction Status Date / Time No Known Allergies Allergy Verified 11/11/21 10:15 Home Medications Medication Instructions Recorded Confirmed Type aspirin 81 mg tablet,delayed 81 mg PO DAILY 04/14/20 11/11/21 History release atorvastatin 40 mg tablet 40 mg PO HS 04/14/20 11/11/21 History lisinopril 40 mg tablet 40 mg PO QAM 04/14/20 11/11/21 History carvedilol 25 mg tablet 1 tablet BID 10/26/21 11/11/21 History finasteride 5 mg tablet 1 tablet HS 10/26/21 11/11/21 History zuqkpxwk-yqc-fnvhx acid 300 1 tablet PO QAM 10/26/21 11/11/21 History mcg-lycopene 600 mcg-lutein 300 mcg tablet (Centrum Silver Men) nifedipine 60 mg tablet,extended 1 tablet PO QAM 10/26/21 11/11/21 History release pantoprazole 40 mg tablet,delayed 1 tablet PO QAM 10/26/21 11/11/21 History release tamsulosin 0.4 mg capsule 1 cap PO HS 10/26/21 11/11/21 History Patient hx anesthesia problems: none Family hx anesthesia problems: none Results Review: All pre-operative results and documents have been reviewed as part of the pre- operative evaluation. [facility] Past Medical History Medical History (Updated 11/10/21 @ 14:16 by Stuart Jaramillo MD) BPH (benign prostatic hyperplasia) CAD (coronary artery disease) COPD (chronic obstructive pulmonary disease) Hyperlipidemia Hypertension HEMA (obstructive sleep apnea) Overweight (BMI 25.0-29.9) Surgical History Surgical History (Updated 11/10/21 @ 14:16 by Stuart Jaramillo MD) History of coronary artery stent placement No significant past surgical history Family History Family History Father Heart murmur Social History Social History Smoking status: Never smoker Second hand tobacco smoke exposure: No Alcohol intake: former Alcohol use details: rare now, in past somewhat common Substance use: never Substance use type: does not use Living arrangements: alone Spiritual care concerns: No Anes - Eval Final PreProcedure Day of Procedure 11/10/21 14:15 Patient weight: overweight Heart: regular rate and rhythm Lungs: clear to auscultation and normal air movement Airway: Mallampati scale class II Neurological: alert and oriented Last oral intake: >/= 8 hours ASA classification: III Emergent: no Anesthetic plan: proceed Anesthesia type and monitoring: general GIVS and LMA Results Review: All pre-operative results and documents have been reviewed as part of the pre- operative evaluation. Informed Consent: The patient's anesthetic plan and its attendant risks and benefits were discussed with the patient/family/POA. Questions were solicited and answers provided to the satisfaction of the patient/family/POA.
[2021-11-11 10:22] VITALS: BP 150/87; PULSE 69; RESP 16; TEMP 36.7; O2SAT 97
[2021-11-11] MEDS: LACTATED RINGERS 1,000 ML 30 ML IV CONT (10:37)
[2021-11-11] MEDS: ACETAMINOPHEN 500 MG TABLET 1000 MG PO (10:48)
--- NOTE | 2021-11-11 12:14 | WPDHPUPDATE1 ---
History and Physical Update Update Date/Time: 11/11/21 12:14 History and Physical has been reviewed, including an updated exam of the patient. There are NO changes in the patient's condition. Risks, benefits, and alternatives have been discussed and questions answered. Patient agrees to proceed with procedure.
[2021-11-11] MEDS: ceFAZolin 2 GM/D5W 50 ML 2 GM/50 ML BAG IVPB (12:23)
[2021-11-11] MEDS: LIDOCAINE HCL 2% GEL UROJET 10 ML PKG MUCOUS MEM (12:41)
[2021-11-11 13:05] VITALS: BP 133/81; PULSE 62; RESP 18; O2SAT 96
--- NOTE | 2021-11-11 13:12 | P.OP_ITS ---
Procedure Note - Detailed Date of Procedure 11/11/21 Pre-op Diagnosis BPH, urinary retention Post-op Diagnosis Same Procedure Performed Cystoscopy, UroLift Surgeon Tejinder Cook MD Description of Procedure Informed consents obtained. Patient taken the operating. He was given preoperative IV antibiotics. He was induced with a MAC anesthetic. He was placed in dorsal lithotomy position. He was prepped and draped in normal sterile fashion. Lidocaine was instilled. A 20F cystoscope was inserted into the bladder. The cystoscopy bridge was replaced with a UroLift delivery device. The first treatment site was the patient's left side approximately 2 cm distal to the bladder neck. The distal tip of the delivery device was then angled laterally approximately 20 degrees at this position to compress the lateral lobe. The trigger was pulled, thereby deploying a needle containing the implant through the prostate. The needle was then retracted, allowing one end of the implant to be delivered to the capsular surface of the prostate. The implant was then tensioned to assure capsular seating and removal of slack monofilament. The device was then angled back toward midline and slowly advanced proximally until cystoscopic verification of the monofilament being centered in the delivery bay. The urethral end piece was then affixed to the monofilament thereby tailoring the size of the implant. Excess filament was then severed. The delivery device was then re-advanced into the bladder. The delivery device was then replaced with cystoscope and bridge and the implant location and opening effect was confirmed cystoscopically. The same procedure was then repeated on the right side, and two additional implants were delivered just proximal to the veru montanum, again one on right and one on left side of the prostate, following the same technique. Cystoscopy then revealed a persistent area of obstruction on the right apex, the refore one more implant was delivered. A final cystoscopy was conducted first to inspect the location and state of each implant and second, to confirm the presence of a continuous anterior channel was present through the prostatic urethra with irrigation flow turned off. A total of 5 implants were placed with a nice continuous channel present. A catheter was not placed. The patient was awakened and taken to recovery room stable condition Complications No immediate complications Condition Stable Disposition PACU
[2021-11-11 13:34] VITALS: BP 166/88; PULSE 59; RESP 16
[2021-11-11] MEDS: oxyCODONE HCL (*CRX) 5 MG TAB IR PO (13:43)
[2021-11-11] MEDS: fentaNYL CITRATE INJ (*CRX) 100 MCG/2 ML VIAL 25 MCG IV PUSH ×4 (13:59→14:20)
[2021-11-11 14:08] VITALS: BP 185/64; PULSE 63; RESP 18
[2021-11-11 14:35] VITALS: BP 176/94; PULSE 62; RESP 16
[2021-11-11 15:09] VITALS: BP 166/91; PULSE 66; RESP 18
== END 2021-11-11 15:14 | disposition home or self-care (01) ==
PROVIDERS: PCP Family Medicine; Visit Provider Urology
PROC: 0T7D8DZ Dilation of Urethra with Intraluminal Device, Via Natural or Artificial Opening Endoscopic (ICD-10-PCS; CPT 52441; principal; 2021-11-11 12:00)
DX: N40.1 Benign prostatic hyperplasia with lower urinary tract symptoms (principal); R33.8 Other retention of urine; I25.10 Atherosclerotic heart disease of native coronary artery without angina pectoris; J44.9 Chronic obstructive pulmonary disease, unspecified; I10 Essential (primary) hypertension; E78.5 Hyperlipidemia, unspecified; G47.33 Obstructive sleep apnea (adult) (pediatric); Z95.5 Presence of coronary angioplasty implant and graft; Z79.82 Long term (current) use of aspirin
CPT/HCPCS: C9740; A9270; J0690; J1100; J2405; J2704; J3010; J7120; L8699